=== PATIENT | female | born 1965 | race Caucasian/White ===

== ENCOUNTER → 2016-06-18 | Outpatient (CLI) | payer BC ==
--- NOTE | ~2016-06-18 | CR169 ---
[facility] A Service of [facility] RADIOLOGY TEXT RESULTS PATIENT: GODFREY LANGLEY LOCATION: [facility] : 65 UNIT #: [id number] AGE: [address]: Ila Pnoce MD SEX: F ORDER DR: [id number] [facility] [address] [place], [place] [address] [id number] O MR#: [id number] Acc #: [id number] NAME: GODFREY LANGLEY : 1965 SEX: F STUDY DATE/TIME: 06/18/2016 16:11 UNIT: [facility] ROOM: STUDY DESCRIPTION: CR Knee 2 Views Lt Attending Physician: Ila Ponce M.D. Referring Physician: Ila Ponce M.D. Ordering Physician: Ila Ponce M.D. Primary Care Physician: Ila Ponce M.D. MEDICAL IMAGING REPORT This report is preliminary unless electronic signature is present EXAM Left knee 2 views 06/18/2016 HISTORY Left knee pain for 2 weeks. Patient felt a pop in left knee 2 weeks ago. Persistent pain. FINDINGS AP and lateral projection of the knee shows smooth articular anatomy without indication of fracture or dislocation at the major weight-bearing surface of the knee. There is no indication of radiopaque foreign body about the knee surface or joint effusion. IMPRESSION Normal knee. Dictated by... Pavan Leyva M.D. THIS IS AN ELECTRONICALLY VERIFIED REPORT Pavan Leyva M.D. at 06/22/2016 10:30 AM RONI/brain TD: 06/21/2016 11:55 JOB #: [id number] MEDICAL IMAGING REPORT Page 1 of 1 COPY
== END | disposition home or self-care (01) ==
LOC: CRAD 15:52
DX: M25.562 Pain in left knee (principal)
CPT/HCPCS: 73560